=== PATIENT | female | born 1970 | race Caucasian/White ===

== ENCOUNTER 2021-05-22 16:26 | Emergency (ER) | payer OTHER ==
[~2021-05-22] VITALS: Ht 160 cm; Wt 86.2 kg
[2021-05-22] MEDS ORDERED: SYNTHROID88 MCG (16:56)
[2021-05-22] MEDS ORDERED: LOSARTAN POTAS100 MG (16:56)
[2021-05-22] MEDS ORDERED: NORFLEX100MG PO (19:40)
== END 2021-05-22 19:45 | disposition home or self-care (01) ==
LOC: ER 16:26
DX: M79.601 Pain in right arm (principal); M54.9 Dorsalgia, unspecified